=== PATIENT | female | born 1985 | race Caucasian/White ===

== ENCOUNTER 2022-02-11 09:26 | Emergency (ER) | payer BC | END 2022-02-11 10:10 | disposition home or self-care (01) | LOC: DL.ED 09:26 | DX: J02.0 Streptococcal pharyngitis (principal); Z79.899 Other long term (current) drug therapy | CPT/HCPCS: 87430; 99283 ==

== ENCOUNTER 2024-03-08 10:50 | Day surgery (SDC) | payer BC ==
[2024-03-08] MEDS: Doxycycline 200 MG in Sodium Chloride 0.9% 100 ML IV ONE (10:03)
[2024-03-08] MEDS: Lactated Ringers 1,000 ML IV SCH (10:04)
[2024-03-08 10:10] LABS: HEMATOCRIT 36.9 % (37.0-47.0); HEMOGLOBIN 12.3 g/dL (12.0-16.0); MEAN CORPUSCULAR HEMOGLOBIN 29.2 pg (27.0-34.0); MEAN CORPUSCULAR HGB CONC 33.3 g/dL (33.0-35.0); MEAN CORPUSCULAR VOLUME 87.6 fL (80-100); RED BLOOD CELL COUNT 4.21 10^6/uL (4.2-5.4); WHITE BLOOD CELL COUNT,WBC 8.6 10^3/uL (5.0-10.0)
[~2024-03-08 10:50] MED LIST: Ketorolac 30 MG/ML SDV ONE; Lidocaine 1% 4 ML ONE; Sodium Chloride 0.9% 10 ML Syringe FLUSH PRN
[2024-03-08] MEDS ORDERED: Methylergonovine 0.2 MG/1 ML Amp ONE (10:57)
[2024-03-08] MEDS ORDERED: Silver Nitrate Applicator Each ONE (10:58)
[2024-03-08] MEDS: Silver Nitrate Applicator Each TOP ONE (11:05)
[2024-03-08] MEDS: Ibuprofen 600 MG Tab PO ONE (15:13)
== END 2024-03-08 15:31 | disposition home or self-care (01) ==
LOC: MERGE 10:50 → DL.SDS 10:50 → DL.MS 12:05 → UNDOADMOB 12:05 → DL.SDS 15:31
PROVIDERS: ATTEND Obstetrics & Gynecology
DX: O02.1 Missed abortion (principal)
CPT/HCPCS: 01965-QZ; 36415; 76857; 84702; 85027; 86850; 86900; 86901; A9270-GY; J3490; J7120